=== PATIENT | male | born 1990 | race African-American/Black ===

== ENCOUNTER 2020-04-23 08:53 | Inpatient (IN) | payer OTHER ==
[2020-04-23] MEDS ORDERED: FENTANYL CITRATE INJ/PF 100 MCG/2 ML AMPUL ONE (08:54)
[2020-04-23] MEDS ORDERED: MORPHINE SULFATE 10 MG/ML INJ ONE (09:08)
[2020-04-23] MEDS ORDERED: LIDOCAINE 1% INJ-PF (10 MG/ML) 30 ML SDV ONE ×2 (09:17→09:44)
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
[2020-04-23] MEDS ORDERED: LIDOCAINE 1% INJ (10 MG/ML) 10 ML MDV INJ ONE (09:18)
[2020-04-23 09:26] LABS: ABSOLUTE LYMPHOCYTES (AUTO) 2.2 10^3/uL (0.5-4.7); ABSOLUTE MONOCYTES (AUTO) 0.5 10^3/uL (0.1-1.4); ABSOLUTE NEUT (AUTO) 4.5 10^3/uL (1.7-8.2); BASOPHILS % (AUTO) 0.3 % (0-2); EOSINOPHILS % (AUTO) 0.5 % (0-6); HEMATOCRIT 36.2 % (37.9-51.0); HEMOGLOBIN 12.7 g/dL (13.5-17.0); LYMPHOCYTES % (AUTO) 30.9 % (13-45); MEAN CORPUSCULAR HEMOGLOBIN 32.1 pg (27.0-33.4); MEAN CORPUSCULAR HGB CONC 35.1 g/dL (32.0-36.0); MEAN CORPUSCULAR VOLUME 92 fl (80-97); MONOCYTES % (AUTO) 6.6 % (3-13); PLATELET COUNT 392 10^3/uL (150-450); RED BLOOD COUNT 3.96 10^6/uL (4.35-5.55); RED CELL DISTRIBUTION WIDTH 13.4 % (11.5-14.0); SEGMENTED NEUTROPHILS % (AUTO) 61.7 % (42-78); TOTAL CELLS COUNTED % (AUTO) 100 %; WHITE BLOOD COUNT 7.2 10^3/uL (4.0-10.5)
[2020-04-23 09:42] LABS: ANION GAP 11 (5-19); BLOOD UREA NITROGEN 12 mg/dL (7-20); CALCIUM 9.4 mg/dL (8.4-10.2); CARBON DIOXIDE 24 mmol/L (22-30); CHLORIDE 104 mmol/L (98-107); GLUCOSE 113 mg/dL (75-110); INTERNATIONAL RATION (INR) 1.05; POTASSIUM 3.5 mmol/L (3.6-5.0); PROTHROMBIN TIME 13.9 SEC (11.4-15.4)
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
[2020-04-23 09:47] LABS: ALCOHOL < 10 mg/dL (NONE DETECTED)
--- NOTE | 2020-04-23 09:57 | RADIOLOGY REPORT (SQ) ---
EXAM DESCRIPTION: CHEST SINGLE VIEW IMAGES COMPLETED DATE/TIME: 04/23/2020 9:45 am REASON FOR STUDY: CHEST TUBE PLACEMENT COMPARISON: Earlier the same day. NUMBER OF VIEWS: One view. TECHNIQUE: Single frontal radiographic image of the chest acquired. LIMITATIONS: None. FINDINGS: Film 0935 demonstrates placement of left large bore chest tube from an inferolateral appro ach with tip overlying the left hilum. Apical pneumothorax slightly decreased in size. No midline sh ift. IMPRESSION: Resolution of midline shift status post chest tube placement. Reading location - IP/workstation name: [email or web address]
[2020-04-23] MEDS ORDERED: MORPHINE SULFATE 10 MG/ML INJ IV ONE (10:21)
[2020-04-23] MEDS ORDERED: FENTANYL CITRATE INJ/PF 100 MCG/2 ML AMPUL IV ONE ×3 (10:21→11:22)
--- NOTE | 2020-04-23 10:34 | RADIOLOGY REPORT (SQ) ---
EXAM DESCRIPTION: CHEST SINGLE VIEW IMAGES COMPLETED DATE/TIME: 04/23/2020 10:17 am REASON FOR STUDY: CHEST TUBE PLACEMENT COMPARISON: 04/23/2020 EXAM PARAMETERS: NUMBER OF VIEWS: One view. TECHNIQUE: Single frontal radiographic view of the chest acquired. RADIATION DOSE: NA LIMITATIONS: None. FINDINGS: LUNGS AND PLEURA: Repositioning of the large bore left-sided chest tube with tip at left l reyes apex. Significant pneumothorax. Persistent left basilar and lingular patchy opacities with like ly small effusion. Unremarkable right hemithorax. MEDIASTINUM AND HILAR STRUCTURES: No masses. Contour normal. HEART AND VASCULAR STRUCTURES: Heart normal in size. Normal vasculature. BONES: No acute findings. HARDWARE: Large bore left-sided chest tube with tip overlying the left lung apex. OTHER: No other significant finding. IMPRESSION: Repositioned large bore left-sided chest tube with tip at left lung apex. No significan t pneumothorax. Stable patchy left basilar opacities with likely trace effusion. TECHNICAL DOCUMENTATION: JOB ID: [id number] 2010 [employer]- All Rights Reserved Reading location - IP/workstation name: [email or web address]
[2020-04-23 10:44] LABS: APPEARANCE,URINE CLEAR; BILIRUBIN,URINE NEGATIVE (NEGATIVE); COLOR,URINE YELLOW; GLUCOSE, URINE NEGATIVE (NEGATIVE); KETONES,URINE NEGATIVE (NEGATIVE); LEUKOCYTE ESTERASE,URINE NEGATIVE (NEGATIVE); NITRITE,URINE NEGATIVE (NEGATIVE); PROTEIN,URINE NEGATIVE (NEGATIVE); URINE SPECIFIC GRAVITY 1.011
--- NOTE | 2020-04-23 11:42 | RADIOLOGY REPORT (SQ) ---
EXAM DESCRIPTION: CT CHEST WITH IMAGES COMPLETED DATE/TIME: 04/23/2020 11:21 am REASON FOR STUDY: tr2; COMPARISON: None. TECHNIQUE: CT scan of the chest performed using helical scanning technique with dynamic intravenous contrast injection. Images reviewed with lung, soft tissue and bone windows. Reconstructed coronal and sagittal MPR and MIP images reviewed. All images stored on PACS. All CT scanners at this facility use dose modulation, iterative reconstruction, and/or weight based d osing when appropriate to reduce radiation dose to as low as reasonably achievable (ALARA). [facility]: Dose Right [facility]: CareDose [facility]: Dose Right [facility]: Teradose 4D [facility]: hyaqu CONTRAST TYPE AND DOSE: contrast/concentration: Isovue 350.00 mmol/ml; Total Contrast Delivered: 98. 0 ml; Total Saline Delivered: 71.0 ml RENAL FUNCTION: None required. The patient is less than 50 years old. RADIATION DOSE: CT Rad equipment meets quality standard of care and radiation dose reduction techniq ues were employed. CTDIvol: 15.1 - 22.0 mGy. DLP: 2778 mGy-cm. . LIMITATIONS: None. FINDINGS: LUNGS AND PLEURA: Segmental airspace disease left lower lobe posteriorly most likely atele ctasis. No significant pneumothorax. Large bore chest tube entering from an inferolateral approach with tip at level of AP window. Small left pleural effusion. HILAR AND MEDIASTINAL STRUCTURES: No identified masses or abnormal nodes. HEART AND VASCULAR STRUCTURES: No aneurysm or dissection. No central pulmonary emboli. No pericardi al effusion. HARDWARE: None in the chest. UPPER ABDOMEN: See separate report of the CT of the abdomen. THYROID AND OTHER SOFT TISSUES: No masses. No adenopathy. BONES: No significant finding. OTHER: No other significant finding. IMPRESSION: Good position of chest tube. No significant pneumothorax. TECHNICAL DOCUMENTATION: JOB ID: [id number] Quality ID # [id number]: Final reports with documentation of one or more dose reduction techniques (e.g., Au tomated exposure control, adjustment of the mA and/or kV according to patient size, use of iterative reconstruction technique) 2010 [employer]- All Rights Reserved Reading location - IP/workstation name: [email or web address]
[2020-04-23] MEDS ORDERED: LIDOCAINE 1% INJ-PF (10 MG/ML) 30 ML SDV INJ ONE (11:53)
--- NOTE | 2020-04-23 11:53 | RADIOLOGY REPORT (SQ) ---
EXAM DESCRIPTION: CT CERVICAL SPINE WITHOUT IMAGES COMPLETED DATE/TIME: 04/23/2020 11:21 am REASON FOR STUDY: tr2; COMPARISON: None. TECHNIQUE: Axial images acquired through the cervical spine without intravenous contrast. Images re viewed with lung, soft tissue and bone windows. Reconstructed coronal and sagittal MPR images review ed. Images stored on PACS. All CT scanners at this facility use dose modulation, iterative reconstruction, and/or weight based d osing when appropriate to reduce radiation dose to as low as reasonably achievable (ALARA). [facility]: Dose Right [facility]: CareDose [facility]: Dose Right [facility]: Teradose 4D [facility]: [employer] RADIATION DOSE: CT Rad equipment meets quality standard of care and radiation dose reduction techniq ues were employed. CTDIvol: 19.3 mGy. DLP: 395 mGy-cm. mGy. LIMITATIONS: None. FINDINGS: ALIGNMENT: Anatomic. MINERALIZATION: Normal. VERTEBRAL BODIES: No fractures or dislocation. DISCS: C4-5 is fused. FACETS, LATERAL MASSES, POSTERIOR ELEMENTS: No fractures. No dislocation. No acute findings. HARDWARE: None in the spine. VISUALIZED RIBS: No fractures. LUNG APICES AND SOFT TISSUES: See separate report same date. OTHER: No other significant finding. IMPRESSION: NO ACUTE OR SIGNIFICANT FINDINGS IN THE CERVICAL SPINE. TECHNICAL DOCUMENTATION: JOB ID: [id number] Quality ID # 436: Final reports with documentation of one or more dose reduction techniques (e.g., Au tomated exposure control, adjustment of the mA and/or kV according to patient size, use of iterative reconstruction technique) 2010 [employer]- All Rights Reserved Reading location - IP/workstation name: [email or web address]
--- NOTE | 2020-04-23 12:06 | RADIOLOGY REPORT (SQ) ---
EXAM DESCRIPTION: CT ABD/PELVIS WITH IV ONLY IMAGES COMPLETED DATE/TIME: 04/23/2020 11:21 am REASON FOR STUDY: tr2; COMPARISON: None. TECHNIQUE: CT scan of the abdomen and pelvis performed using helical scanning technique with dynamic intravenous contrast injection. No oral contrast. Images reviewed with lung, soft tissue, and bone windows. Reconstructed coronal and sagittal MPR images reviewed. Delayed images for evaluation of the urinary system also acquired. All images stored on PACS. All CT scanners at this facility use dose modulation, iterative reconstruction, and/or weight based d osing when appropriate to reduce radiation dose to as low as reasonably achievable (ALARA). [facility]: Dose Right [facility]: CareDose [facility]: Dose Right [facility]: Teradose 4D [facility]: Smart [employer] RENAL FUNCTION: None required. The patient is less than 50 years old. RADIATION DOSE: . LIMITATIONS: None. FINDINGS: LOWER CHEST: Left pleural effusion measuring approximately 60 HU and volume estimated 200 cc. LIVER: 15 mm hemangioma or subdiaphragmatic image 83. 10 mm cyst right lobe. SPLEEN: Normal size. No focal lesions. PANCREAS: No masses. No significant calcifications. No adjacent inflammation or peripancreatic fluid collections. Pancreatic duct not dilated. GALLBLADDER: No identified stones by CT criteria. No inflammatory changes to suggest cholecystitis. ADRENAL GLANDS: No significant masses or asymmetry. RIGHT KIDNEY AND URETER: No solid masses. No significant calcifications. No hydronephrosis or hyd roureter. LEFT KIDNEY AND URETER: No solid masses. No significant calcifications. No hydronephrosis or hydr oureter. AORTA AND VESSELS: No aneurysm. No dissection. Renal arteries, SMA, celiac without stenosis. RETROPERITONEUM: No retroperitoneal adenopathy, hemorrhage or masses. BOWEL AND PERITONEAL CAVITY: No masses or inflammatory changes. No free fluid or peritoneal masses. APPENDIX: Normal. PELVIS: No mass. No free fluid. Normal bladder. ABDOMINAL WALL: No masses. No hernias. BONES: No significant or acute findings. OTHER: No other significant finding. IMPRESSION: 1. No evidence of solid organ injury or hemoperitoneum. 2. Small left hemothorax. TECHNICAL DOCUMENTATION: JOB ID: [id number] Quality ID # [id number]: Final reports with documentation of one or more dose reduction techniques (e.g., Au tomated exposure control, adjustment of the mA and/or kV according to patient size, use of iterative reconstruction technique) 2010 [employer]- All Rights Reserved Reading location - IP/workstation name: [email or web address]
[2020-04-23] MEDS ORDERED: DIPH/PERTUSS(ACELL)/TETANUS VAC/PF 0.5 ML SYR (>=10YO) IM ONE (12:39)
--- NOTE | 2020-04-23 12:42 | Operative Report ---
Operative Report DATE OF SURGERY: 04/23/20 PREOPERATIVE DIAGNOSIS: Left-sided pneumothorax. POSTOPERATIVE DIAGNOSIS: Left sided pneumothorax. OPERATION: Left tube thoracostomy SURGEON: TWIN ROMAN ANESTHESIA: Local TISSUE REMOVED OR ALTERED: None COMPLICATIONS: None ESTIMATED BLOOD LOSS: Approximately 100 cc of blood drained from the thorax INTRAOPERATIVE FINDINGS: Approximately 100 cc of blood drained from the thorax. PROCEDURE: Informed consent was obtained. Procedure was done in the emergency department. Patient's left chest was prepped and draped in the usual sterile fashion. Local anesthetic was administered. Incision was made at the anterior axillary line. A tunnel was then created and at approximately the 6th intercostal space at the anterior axillary line, the chest was entered with a Apolonia clamp. There was a gush of air. Size 28 chest tube was placed. Approximately 100 cc of blood initially drained. The chest tube was sutured in place and dressings applied. Stat portable chest x-ray was ordered and it demonstrated the tube going towards the mediastinum but not all the way to the apex with resolution of his mediastinal shift but still a pneumothorax. With this finding the chest tube was removed sterilely, keeping the exit site sterile and the exit site was reprepped and draped. A new size 28 chest tube was placed and I obtained chest x-rays during the placement to ensure good positioning of the chest tube. The chest tube was sutured in place and dressings were applied. Final chest x-ray demonstrated resolution of his pneumothorax and good positioning of the chest tube with the tip at the apex. Initial air leak resolved. Patient tolerated procedure well with no apparent complications.
[2020-04-23] MEDS ORDERED: DEXTROSE 40% GEL 15 GM TUBE PO PRN ×2 (12:58)
[2020-04-23] MEDS ORDERED: DEXTROSE 50%-WATER 25 GM/50 ML DISP.SYRIN IV PRN ×2 (12:58)
[2020-04-23] MEDS ORDERED: GLUCAGON,HUMAN RECOMB 1 MG INJ SUBCUT PRN (12:58)
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
[2020-04-23] MEDS: CEFAZOLIN 1 GM/D5W RTU 1 GM/50 ML RTUPB IV SCH ×3 (13:58→23:11)
[2020-04-23] MEDS: ONDANSETRON HCL INJ/PF 4 MG/2 ML SDV IV PRN (14:08)
[2020-04-23] MEDS: MORPHINE SULFATE 10 MG/ML INJ IV PRN ×3 (14:10→23:12)
[2020-04-23] MEDS: NORMAL SALINE 1000 ML 1,000 ML IV PRN ×2 (14:14→17:25)
--- NOTE | 2020-04-23 14:17 | EKG REPORT ---
SEVERITY:- BORDERLINE ECG - CONSIDER LEFT VENTRICULAR HYPERTROPHY SINUS RHYTHM : Confirmed by: Carol Bustos MD 23-Apr-2020 14:16:53
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
[2020-04-24] MEDS: MORPHINE SULFATE 10 MG/ML INJ IV PRN ×3 (03:43→20:04)
[2020-04-24] MEDS: NORMAL SALINE 1000 ML 1,000 ML IV PRN ×2 (03:43→22:21)
[2020-04-24] MEDS: CEFAZOLIN 1 GM/D5W RTU 1 GM/50 ML RTUPB IV SCH ×3 (05:07→17:41)
[2020-04-24 05:46] LABS: ABSOLUTE LYMPHOCYTES (AUTO) 1.3 10^3/uL (0.5-4.7); ABSOLUTE MONOCYTES (AUTO) 0.6 10^3/uL (0.1-1.4); ABSOLUTE NEUT (AUTO) 4.7 10^3/uL (1.7-8.2); BASOPHILS % (AUTO) 0.2 % (0-2); EOSINOPHILS % (AUTO) 0.2 % (0-6); HEMATOCRIT 32.5 % (37.9-51.0); HEMOGLOBIN 11.6 g/dL (13.5-17.0); LYMPHOCYTES % (AUTO) 19.6 % (13-45); MEAN CORPUSCULAR HEMOGLOBIN 32.6 pg (27.0-33.4); MEAN CORPUSCULAR HGB CONC 35.6 g/dL (32.0-36.0); MEAN CORPUSCULAR VOLUME 92 fl (80-97); MONOCYTES % (AUTO) 9.6 % (3-13); PLATELET COUNT 286 10^3/uL (150-450); RED BLOOD COUNT 3.55 10^6/uL (4.35-5.55); RED CELL DISTRIBUTION WIDTH 13.2 % (11.5-14.0); SEGMENTED NEUTROPHILS % (AUTO) 70.4 % (42-78); TOTAL CELLS COUNTED % (AUTO) 100 %; WHITE BLOOD COUNT 6.7 10^3/uL (4.0-10.5)
[2020-04-24 05:59] LABS: ANION GAP 8 (5-19); BLOOD UREA NITROGEN 7 mg/dL (7-20); CALCIUM 8.9 mg/dL (8.4-10.2); CARBON DIOXIDE 25 mmol/L (22-30); CHLORIDE 103 mmol/L (98-107); GLUCOSE 96 mg/dL (75-110); POTASSIUM 3.8 mmol/L (3.6-5.0)
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
--- NOTE | 2020-04-24 08:58 | RADIOLOGY REPORT (SQ) ---
EXAM DESCRIPTION: CHEST SINGLE VIEW IMAGES COMPLETED DATE/TIME: 04/24/2020 8:49 am REASON FOR STUDY: pneumothorax, chest tube COMPARISON: AP view of the chest from 04/23/2020. EXAM PARAMETERS: NUMBER OF VIEWS: One view. TECHNIQUE: An AP view of the chest was obtained. RADIATION DOSE: NA LIMITATIONS: None. FINDINGS: LUNGS AND PLEURA: Stable position of the left apical large-bore chest tube. There is no r esidual pneumothorax. The opacities in the base of the left lung are unchanged. The left lateral co stophrenic sulcus remains blunted. MEDIASTINUM AND HILAR STRUCTURES: Stable mediastinal and hilar contours. HEART AND VASCULAR STRUCTURES: Stable cardiac silhouette. BONES: No acute findings. HARDWARE: None in the chest. OTHER: No other finding. IMPRESSION: Stable position of the left apical large-bore chest tube and opacities in the base of th e left lung. There is no residual pneumothorax. TECHNICAL DOCUMENTATION: JOB ID: [id number] 2010 [employer]- All Rights Reserved Reading location - IP/workstation name: [email or web address]
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
--- NOTE | 2020-04-24 14:55 | RADIOLOGY REPORT (SQ) ---
EXAM DESCRIPTION: CHEST SINGLE VIEW IMAGES COMPLETED DATE/TIME: 04/24/2020 11:34 am REASON FOR STUDY: r/o ptx COMPARISON: CT chest and single-view chest 04/23/2020 EXAM PARAMETERS: NUMBER OF VIEWS: One view. TECHNIQUE: Single frontal radiographic view of the chest acquired. RADIATION DOSE: NA LIMITATIONS: External leads partially obscure underlying structures. FINDINGS: LUNGS AND PLEURA: Patchy left lower lung opacities again demonstrated. There is a tiny re sidual left apical pneumothorax. Small amount of left pleural fluid also demonstrated. Right lung i s clear. MEDIASTINUM AND HILAR STRUCTURES: No masses. Contour normal. HEART AND VASCULAR STRUCTURES: Heart normal in size. Normal vasculature. BONES: No acute findings. HARDWARE: Left-sided chest tube again demonstrated. OTHER: No other significant finding. IMPRESSION: Tiny residual left apical pneumothorax. TECHNICAL DOCUMENTATION: JOB ID: [id number] [employer]- All Rights Reserved Reading location - IP/workstation name: [email or web address]
[2020-04-25] MEDS: MORPHINE SULFATE 10 MG/ML INJ IV PRN ×5 (00:16→22:03)
[2020-04-25] MEDS: CEFAZOLIN 1 GM/D5W RTU 1 GM/50 ML RTUPB IV SCH ×5 (00:17→23:09)
--- NOTE | 2020-04-25 08:42 | RADIOLOGY REPORT (SQ) ---
EXAM DESCRIPTION: CHEST SINGLE VIEW IMAGES COMPLETED DATE/TIME: 04/25/2020 8:00 am REASON FOR STUDY: ptx COMPARISON: Previous day NUMBER OF VIEWS: One view. TECHNIQUE: Single frontal radiographic image of the chest acquired. LIMITATIONS: None. FINDINGS: LUNGS AND PLEURA: Less than 10% left apical pneumothorax not significantly changed. MEDIASTINUM AND HEART: Stable heart size and mediastinal structures. SUPPORT DEVICES: Appropriate location without change. BONY STRUCTURES: No acute findings. HARDWARE: None. OTHER: No other significant finding. IMPRESSION: No significant change. Reading location - IP/workstation name: [email or web address]
[2020-04-25 09:47] LABS: HEMATOCRIT 31.3 % (37.9-51.0); HEMOGLOBIN 11.2 g/dL (13.5-17.0); MEAN CORPUSCULAR HEMOGLOBIN 32.6 pg (27.0-33.4); MEAN CORPUSCULAR HGB CONC 35.8 g/dL (32.0-36.0); MEAN CORPUSCULAR VOLUME 91 fl (80-97); PLATELET COUNT 293 10^3/uL (150-450); RED BLOOD COUNT 3.43 10^6/uL (4.35-5.55); RED CELL DISTRIBUTION WIDTH 13.4 % (11.5-14.0); WHITE BLOOD COUNT 9.7 10^3/uL (4.0-10.5)
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
[2020-04-26] MEDS: MORPHINE SULFATE 10 MG/ML INJ IV PRN ×2 (05:47→10:20)
[2020-04-26] MEDS: CEFAZOLIN 1 GM/D5W RTU 1 GM/50 ML RTUPB IV SCH (05:48)
--- NOTE | 2020-04-26 09:38 | RADIOLOGY REPORT (SQ) ---
EXAM DESCRIPTION: CHEST SINGLE VIEW IMAGES COMPLETED DATE/TIME: 04/26/2020 9:25 am REASON FOR STUDY: f/u ptx COMPARISON: 04/25/2020 EXAM PARAMETERS: NUMBER OF VIEWS: One view. TECHNIQUE: Single frontal radiographic view of the chest acquired. RADIATION DOSE: NA LIMITATIONS: None. FINDINGS: LUNGS AND PLEURA: Stable large bore left-sided chest tube. No appreciable pneumothorax. Unchanged patchy left basilar parenchymal opacities. No significant effusion. MEDIASTINUM AND HILAR STRUCTURES: No masses. Contour normal. HEART AND VASCULAR STRUCTURES: Heart normal in size. Normal vasculature. BONES: No acute findings. HARDWARE: Stable large bore left-sided chest tube with tip at apex. OTHER: No other significant finding. IMPRESSION: Stable large bore left-sided chest tube without significant pneumothorax. Unchanged pat scottie left basilar parenchymal opacities. TECHNICAL DOCUMENTATION: JOB ID: [id number] [employer]- All Rights Reserved Reading location - IP/workstation name: [email or web address]
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
[2020-04-26] MEDS: KETOROLAC TROMETHAMINE INJ/PF 30 MG/1 ML SDV IV PRN ×2 (15:20→21:36)
[2020-04-26] MEDS: OXYCODONE-ACETAMINOPHEN 5-325 MG TABLET PO PRN (18:39)
[2020-04-26] MEDS: DOCUSATE SODIUM 100 MG CAPSULE PO SCH (18:39)
[2020-04-27] MEDS: OXYCODONE-ACETAMINOPHEN 5-325 MG TABLET PO PRN ×3 (06:29→18:54)
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
[2020-04-27] MEDS: DOCUSATE SODIUM 100 MG CAPSULE PO SCH ×2 (10:14→17:43)
--- NOTE | 2020-04-27 11:54 | RADIOLOGY REPORT (SQ) ---
EXAM DESCRIPTION: CHEST 2 VIEWS IMAGES COMPLETED DATE/TIME: 04/27/2020 11:38 am REASON FOR STUDY: Interval change in left chest @1100 COMPARISON: 04/26/2020. EXAM PARAMETERS: NUMBER OF VIEWS: two views TECHNIQUE: Digital Frontal and Lateral radiographic views of the chest acquired. RADIATION DOSE: NA LIMITATIONS: none FINDINGS: LUNGS AND PLEURA: Left basilar density. Right lung clear. No pneumothorax. No pleural e ffusion. MEDIASTINUM AND HILAR STRUCTURES: No masses or contour abnormalities. HEART AND VASCULAR STRUCTURES: Heart normal size. No evidence for failure. BONES: No acute findings. HARDWARE: Stable left chest tube. OTHER: No other significant finding. IMPRESSION: STABLE LEFT CHEST TUBE. NO PNEUMOTHORAX. LEFT BASILAR DENSITY MAY BE DUE TO ATELECTASI S VERSUS DEVELOPING PNEUMONIA. TECHNICAL DOCUMENTATION: JOB ID: [id number] 2010 [employer]- All Rights Reserved Reading location - IP/workstation name: [email or web address]
[2020-04-27] MEDS: KETOROLAC TROMETHAMINE INJ/PF 30 MG/1 ML SDV IV PRN (17:49)
[2020-04-27] MEDS: ONDANSETRON HCL INJ/PF 4 MG/2 ML SDV IV PRN (23:33)
[2020-04-28] MEDS: OXYCODONE-ACETAMINOPHEN 5-325 MG TABLET PO PRN ×3 (01:41→19:24)
[2020-04-28] MEDS: KETOROLAC TROMETHAMINE INJ/PF 30 MG/1 ML SDV IV PRN ×2 (07:40→17:08)
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
[2020-04-28] MEDS: DOCUSATE SODIUM 100 MG CAPSULE PO SCH ×2 (09:08→17:05)
--- NOTE | 2020-04-28 11:41 | RADIOLOGY REPORT (SQ) ---
EXAM DESCRIPTION: CHEST 2 VIEWS IMAGES COMPLETED DATE/TIME: 04/28/2020 11:32 am REASON FOR STUDY: Status post chest tube removal COMPARISON: 04/27/2020. EXAM PARAMETERS: NUMBER OF VIEWS: two views TECHNIQUE: Digital Frontal and Lateral radiographic views of the chest acquired. RADIATION DOSE: NA LIMITATIONS: none FINDINGS: LUNGS AND PLEURA: Persistent density in the left lung base. Right lung clear. No pneumot horax. MEDIASTINUM AND HILAR STRUCTURES: No masses or contour abnormalities. HEART AND VASCULAR STRUCTURES: Heart normal size. No evidence for failure. BONES: No acute findings. HARDWARE: None in the chest. OTHER: No other significant finding. IMPRESSION: NO PNEUMOTHORAX FOLLOWING REMOVAL OF THE LEFT CHEST TUBE. PERSISTENT DENSITY IN THE LEF T LUNG BASE, UNCHANGED. TECHNICAL DOCUMENTATION: JOB ID: [id number] 2010 [employer]- All Rights Reserved Reading location - IP/workstation name: [email or web address]
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
[2020-04-28 16:03] VITALS: BP 114/57
== END 2020-04-28 20:21 | disposition home or self-care (01) | DRG 909 ==
LOC: ER 08:53 → EH 10:54 → 4N 16:34
PROVIDERS: ADMIT Surgery; ATTEND Surgery
PROC: 0B9L0ZZ Drainage of Left Lung, Open Approach (ICD-10-PCS; principal; 2020-04-23)
PROC: 3E0234Z Introduction of Serum, Toxoid and Vaccine into Muscle, Percutaneous Approach (ICD-10-PCS; 2020-04-23)
DX: S21.312A Laceration without foreign body of left front wall of thorax with penetration into thoracic cavity, initial encounter (principal); S27.0XXA Traumatic pneumothorax, initial encounter; X99.9XXA Assault by unspecified sharp object, initial encounter; Y92.89 Other specified places as the place of occurrence of the external cause; Z23 Encounter for immunization
CPT/HCPCS: 36415; 71045; 71046; 71260; 72125; 74177; 80048; 80307; 81001; 85025; 85027; 85610; 86850; 86900; 86901; 87040; 90471; 90715; 93005; 93010; 96374; 96375; 96376; 99285; J0690; J1885; J2270; J2405; J3010; J3490; J7030

== ENCOUNTER → 2020-05-07 | Outpatient (CLI) | payer OTHER ==
--- NOTE | 2020-05-07 16:00 | RADIOLOGY REPORT (SQ) ---
EXAM DESCRIPTION: CHEST 2 VIEWS IMAGES COMPLETED DATE/TIME: 05/07/2020 3:44 pm REASON FOR STUDY: (J93.9)PNEUMOTHORAX, UNSPECIFIED COMPARISON: 04/26/2020 and 04/28/2020 EXAM PARAMETERS: NUMBER OF VIEWS: two views TECHNIQUE: Digital Frontal and Lateral radiographic views of the chest acquired. RADIATION DOSE: NA LIMITATIONS: none FINDINGS: LUNGS AND PLEURA: Small left-sided pleural effusion with compressive atelectasis of the le ft lower lobe. No pneumothorax. MEDIASTINUM AND HILAR STRUCTURES: No masses or contour abnormalities. HEART AND VASCULAR STRUCTURES: Heart normal size. No evidence for failure. BONES: No acute findings. HARDWARE: None in the chest. OTHER: No other significant finding. IMPRESSION: Persistent small left-sided pleural effusion. No pneumothorax recurrence. TECHNICAL DOCUMENTATION: JOB ID: [id number] [employer]- All Rights Reserved Reading location - IP/workstation name: [email or web address]
== END ==
LOC: RAD 15:22
PROVIDERS: ATTEND Surgery
DX: J93.9 Pneumothorax, unspecified (principal)
CPT/HCPCS: 71046